=== PATIENT | female | born 1995 | race Two or more races ===

== ENCOUNTER 2018-05-02 00:35 | Emergency (ER) | payer MEDICAID ==
[2018-05-02] MEDS ORDERED: ONDANSETRON 4 MG/2 ML VIAL IVP ONE (00:45)
[2018-05-02] MEDS ORDERED: NS 1,000 ML IV ONE (00:45)
--- NOTE | 2018-05-02 00:56 | EDPHY ---
H & P Stated Complaint: recent dx with PE, since decreased urine op, vag bleeding/gen abd pain 2 da Time Seen by Provider: 05/02/18 00:55 HPI/ROS: HPI CHIEF COMPLAINT: Lower pelvic pain. Nausea. HISTORY OF PRESENT ILLNESS: 23-year-old female, history of PE, on Xarelto, got up pulmonary embolism from control and smoking tobacco. She is currently homeless. She presents emergency room with lower pelvic pain. States she is concerned she may have an infection. She developed pelvic pain over the last 48 hr. She just completed her menstrual cycle. She denies any significant abnormal vaginal discharge. Denies foul odor. Denies fever. Does complain of some lower pelvic pain. Past Medical History: Pulmonary embolism on Xarelto. Past Surgical History: No recent surgical history Social History: Homeless, smokes tobacco. Continues control. Family History: Noncontributory ROS REVIEW OF SYSTEMS: 10 Systems were reviewed and negative with the exception of the elements mentioned in the history of present illness. Exam Constitutional nontoxic. No acute distress, vital signs stable triage nursing summary reviewed, vital signs reviewed, awake/alert. Eyes normal conjunctivae and sclera, EOMI, PERRLA. HENT normal inspection, atraumatic, moist mucus membranes, no epistaxis, neck supple/ no meningismus, no raccoon eyes. Respiratory clear to auscultation bilaterally, normal breath sounds, no respiratory distress, no wheezing. Cardiovascular rate normal, regular rhythm, no murmur, no edema, distal pulses normal. Gastrointestinal mild tender palpation right and left adnexal and suprapubic tenderness, no peritoneal signs, soft, non-tender, no rebound, no guarding, normal bowel sounds, no distension, no pulsatile mass. Genitourinary no CVA tenderness. Musculoskeletal no midline vertebral tenderness, full range of motion, no calf swelling, no tenderness of extremities, no meningismus, good pulses, neurovascularly intact. Skin pink, warm, & dry, no rash, skin atraumatic. Neurologic awake, alert and oriented x 3, AAOx3, moves all 4 extremities equally, motor intact, sensory intact, CN II-XII intact, normal cerebellar, normal vision, normal speech. Psychiatric normal mood/affect. Heme/Lymph/Immune no lymphadenopathy. Differential diagnosis includes but is not limited to and in no particular order : Bowel obstruction, appendicitis, gallbladder disease, diverticulitis, colitis , enteritis, perforated viscus, gastritis, GERD, esophagitis, urinary tract infection, pyelonephritis, kidney stones Medical Decision Making: Plan for this patient IV establishment blood draw, gentle IV fluids, check UA, check test, pelvic exam and pelvic ultrasound. Re-evaluate. Re-evaluation: Pelvic ultrasound reviewed. Called to me by Dr. Caban. Unremarkable pelvic ultrasound. [id number]: Discussed patient's blood work and ultrasound results with her. Given that she is concerned about a possible pelvic infection I highly recommend she gets a pelvic exam with specimen sent however she is refusing the pelvic exam. She understands by he is in the pelvic exam not having specimen sent that I am unable to tell if she has a pelvic infection or PID. I did instead offer her emperic treatment just in case however she has declined this. She states that she will see how she does. She understands the risk of doing so. She understands the risk of by not having a pelvic exam pelvic specimens sent I am unable to tell if she has pelvic infection. Declined pelvic exam here in emergency room, declined antibiotics. I did discussed return precautions with her she understands return emergency room develops worsening abdominal pain, fever, pelvic pain, questions or concerns. Source: Patient - Medical/Surgical History Hx Asthma: No Hx Chronic Respiratory Disease: No Hx Diabetes: No Hx Cardiac Disease: No Hx Renal Disease: No Hx Cirrhosis: No Hx Alcoholism: No Hx HIV/AIDS: No Hx Splenectomy or Spleen Trauma: No Other PMH: PE, borderline personality do, ptsd, depression, bipolar - Social History Smoking Status: Current every day smoker Constitutional: Initial Vital Signs Temperature (C) 36.5 C 05/02/18 00:38 Heart Rate 88 05/02/18 00:38 Respiratory Rate 16 05/02/18 00:38 Blood Pressure 140/84 H 05/02/18 00:38 O2 Sat (%) 99 05/02/18 00:38 O2 Delivery Mode Room Air Allergies/Adverse Reactions: No Known Allergies Allergy (Unverified 05/02/18 00:43) Home Medications: Medication Instructions Recorded Control 05/02/18 Xarelto 05/02/18 Medical Decision Making - Data Points Laboratory Results: Laboratory Results 05/02/18 01:13 05/02/18 01:13 05/02/18 05/02/18 05/02/18 01:30 01:30 01:13 WBC RBC Hgb Hct MCV MCH MCHC RDW Plt Count MPV Neut % (Auto) Lymph % (Auto) [place] % (Auto) Eos % (Auto) Baso % (Auto) Nucleat RBC Rel Count Absolute Neuts (auto) Absolute Lymphs (auto) Absolute Monos (auto) Absolute Eos (auto) Absolute Basos (auto) Absolute Nucleated RBC Immature Gran % Immature Gran # Sodium Potassium Chloride Carbon Dioxide Anion Gap BUN Creatinine Estimated GFR Glucose Calcium Total Bilirubin Conjugated Bilirubin Unconjugated Bilirubin AST ALT Alkaline Phosphatase Total Protein Albumin Lipase Beta HCG, Qual NEGATIVE Urine Color YELLOW Urine Appearance CLEAR Urine pH 5.0 (5.0-7.5) Ur Specific [place] 1.021 (1.002-1.030) Urine Protein NEGATIVE (NEGATIVE) Urine Ketones NEGATIVE (NEGATIVE) Urine Blood NEGATIVE (NEGATIVE) Urine Nitrate NEGATIVE (NEGATIVE) Urine Bilirubin NEGATIVE (NEGATIVE) Urine Urobilinogen 2.0 EU H EU (0.2-1.0) Ur Leukocyte Esterase NEGATIVE (NEGATIVE) Urine Glucose NEGATIVE (NEGATIVE) Urine Opiates Screen NEGATIVE (NEGATIVE) Urine Barbiturates NEGATIVE (NEGATIVE) Ur Phencyclidine Scrn NEGATIVE (NEGATIVE) Ur Amphetamine Screen NEGATIVE (NEGATIVE) U Benzodiazepines Scrn NEGATIVE (NEGATIVE) Urine Cocaine Screen NEGATIVE (NEGATIVE) U Marijuana (THC) Screen NEGATIVE (NEGATIVE) 05/02/18 05/02/18 01:13 01:13 WBC 10.74 10^3/uL H 10^3/uL (3.80-9.50) RBC 4.03 10^6/uL L 10^6/uL (4.18-5.33) Hgb 12.3 g/dL L g/dL (12.6-16.3) Hct 36.9 % L % (38.0-47.0) MCV 91.6 fL fL (81.5-99.8) MCH 30.5 pg pg (27.9-34.1) MCHC 33.3 g/dL g/dL (32.4-36.7) RDW 12.2 % % (11.5-15.2) Plt Count 286 10^3/uL 10^3/uL (150-400) MPV 8.6 fL L fL (8.7-11.7) Neut % (Auto) 67.8 % % (39.3-74.2) Lymph % (Auto) 23.0 % % (15.0-45.0) [place] % (Auto) 6.1 % % (4.5-13.0) Eos % (Auto) 2.5 % % (0.6-7.6) Baso % (Auto) 0.2 % L % (0.3-1.7) Nucleat RBC Rel Count 0.0 % % (0.0-0.2) Absolute Neuts (auto) 7.28 10^3/uL H 10^3/uL (1.70-6.50) Absolute Lymphs (auto) 2.47 10^3/uL 10^3/uL (1.00-3.00) Absolute Monos (auto) 0.66 10^3/uL 10^3/uL (0.30-0.80) Absolute Eos (auto) 0.27 10^3/uL 10^3/uL (0.03-0.40) Absolute Basos (auto) 0.02 10^3/uL 10^3/uL (0.02-0.10) Absolute Nucleated RBC 0.00 10^3/uL 10^3/uL (0-0.01) Immature Gran % 0.4 % % (0.0-1.1) Immature Gran # 0.04 10^3/uL 10^3/uL (0.00-0.10) Sodium 135 mEq/L mEq/L (135-145) Potassium 4.1 mEq/L mEq/L (3.3-5.0) Chloride 100 mEq/L mEq/L (97-110) Carbon Dioxide 26 mEq/l mEq/l (22-31) Anion Gap 9 mEq/L mEq/L (6-14) BUN 14 mg/dL mg/dL (7-23) Creatinine 0.7 mg/dL mg/dL (0.6-1.0) Estimated GFR > 60 Glucose 92 mg/dL mg/dL (70-100) Calcium 9.5 mg/dL mg/dL (8.5-10.4) Total Bilirubin 0.3 mg/dL mg/dL (0.1-1.4) Conjugated Bilirubin 0.1 mg/dL mg/dL (0.0-0.5) Unconjugated Bilirubin 0.2 mg/dL mg/dL (0.0-1.1) AST 16 IU/L IU/L (14-46) ALT 25 IU/L IU/L (9-52) Alkaline Phosphatase 53 IU/L IU/L (38-126) Total Protein 7.2 g/dL g/dL (6.3-8.2) Albumin 4.0 g/dL g/dL (3.5-5.0) Lipase 68 IU/L IU/L (23-300) Beta HCG, Qual Urine Color Urine Appearance Urine pH Ur Specific [place] Urine Protein Urine Ketones Urine Blood Urine Nitrate Urine Bilirubin Urine Urobilinogen Ur Leukocyte Esterase Urine Glucose Urine Opiates Screen Urine Barbiturates Ur Phencyclidine Scrn Ur Amphetamine Screen U Benzodiazepines Scrn Urine Cocaine Screen U Marijuana (THC) Screen Medications Given: Discontinued Medications Sodium Chloride (Ns) 1,000 mls @ 0 mls/hr IV EDNOW ONE; Wide Open PRN Reason: Protocol Stop: 05/02/18 00:46 Last Admin: 05/02/18 01:14 Dose: 1,000 mls Ondansetron HCl (Zofran) 4 mg IVP EDNOW ONE Stop: 05/02/18 00:46 Last Admin: 05/02/18 01:13 Dose: 4 mg Departure - Departure Disposition: Home, Routine, Self-Care Clinical Impression: Pelvic pain in female Condition: Good Instructions: Pelvic Pain in Women (ED) Additional Instructions: 1. Return emergency room if develops worsening abdominal pain or pelvic pain. Referrals: NONE *PRIMARY CARE P,. [Primary Care Provider] - As per Instructions Samra Bee MD [Medical Doctor] - As per Instructions
[2018-05-02 01:22] LABS: PLATELET COUNT 286 10^3/uL (150-400)
[2018-05-02 03:00] VITALS: BP 132/73
== END 2018-05-02 02:58 | disposition home or self-care (01) ==
DX: R10.2 Pelvic and perineal pain (principal); Z86.711 Personal history of pulmonary embolism; Z79.01 Long term (current) use of anticoagulants; Z59.0 Homelessness; E86.9 Volume depletion, unspecified
CPT/HCPCS: 80305; 96374; J2405

== ENCOUNTER 2018-05-10 23:50 | Emergency (ER) | payer MEDICAID ==
[2018-05-11] MEDS ORDERED: IPRATROPIUM/ALBUTEROL 3 ML DEYVIAL IH ONE (00:30)
--- NOTE | 2018-05-11 00:39 | EDPHY ---
H & P Stated Complaint: COUGH, SOB, METH USE TODAY, PE 3 WKS AGO, OFF XERALTO Time Seen by Provider: 05/10/18 23:51 HPI/ROS: HPI The patient presents with cough which has been present for the last 4 days which is productive of clear yellow sputum. Today it became associated with bilateral eye drainage and redness as well as nasal congestion. The cough has been intermittent though getting progressively worse. Tonight it became associated with shortness of breath and that is why she called 911. She has had chills though no fevers at home. She reports aching pains of her lower back and flanks. She has not had any chest pain. Currently, she is not feeling short of breath, she only feels this way when she has a coughing fit. She is currently residing at the [facility]. She is sure she has been exposed to other sick people. She does smoke cigarettes in use methamphetamine. She was admitted to a hospital in [place] approximately 3 weeks ago where she was diagnosed with bilateral pulmonary embolism. She was given a course of Xarelto after a 3 day admission. Source of the PE was thought to be due to OCP use and smoking history. She did not have a DVT. She was able to take 21 days of Xarelto twice daily, however failed to continue after this and has not been taking it since. She says her symptoms today do not feel anything like her PE which caused her dyspnea on exertion and pleuritic chest pain. REVIEW OF SYSTEMS 10 systems were reviewed and negative with the exception of the elements mentioned in the history of present illness. PMHx: Reported diagnosis of pulmonary embolism 3 weeks ago, currently not taking Xarelto Soc Hx: From [place], currently staying at the [facility], smokes cigarettes, uses methamphetamine PHYSICAL General Appearance: Alert, coughing up clear yellow phlegm Eyes: Pupils equal and round, conjunctiva not injected though bilateral drainage which is yellowish ENT, Mouth: Mucous membranes moist, posterior pharynx unremarkable Respiratory: There are no retractions, lungs are clear to auscultation Cardiovascular: Regular rate and rhythm Gastrointestinal: Abdomen is soft and non-tender, no masses, bowel sounds normal Neurological: A&O, moves all extremities Skin: Warm and dry, no rashes Musculoskeletal: Neck is supple non tender Extremities: symmetrical, full range of motion Psychiatric: Patient is oriented X 3, there is no agitation Source: Patient, EMS Exam Limitations: No limitations - Personal History Current Tetanus/Diphtheria Vaccine: Yes - Medical/Surgical History Hx Asthma: No Hx Chronic Respiratory Disease: No Hx Diabetes: No Hx Cardiac Disease: No Hx Renal Disease: No Hx Cirrhosis: No Hx Alcoholism: No Hx HIV/AIDS: No Hx Splenectomy or Spleen Trauma: No Other PMH: PE, borderline personality do, ptsd, depression, bipolar, METH USE - Social History Smoking Status: Current every day smoker Constitutional: Initial Vital Signs Temperature (C) 36.8 C 05/10/18 23:50 Heart Rate 100 05/10/18 23:50 Respiratory Rate 22 H 05/10/18 23:50 Blood Pressure 127/92 H 05/10/18 23:50 O2 Sat (%) 99 05/10/18 23:50 O2 Delivery Mode Room Air Allergies/Adverse Reactions: No Known Allergies Allergy (Unverified 05/02/18 00:43) Home Medications: Medication Instructions Recorded Control 05/02/18 Xarelto 05/02/18 Doxycycline Hyclate 100 mg PO BID #14 tab 05/11/18 Rivaroxaban [Xarelto] 20 mg PO DAILY #14 tab 05/11/18 Medical Decision Making - Diagnostics Imaging Results: Chest x-ray two view shows faint retrocardiac infiltrate, interpreted by me, radiology interpretation is pending. Imaging: I viewed and interpreted images myself Differential Diagnosis: 23-year-old homeless female with recent diagnosis of pulmonary embolism about 3 weeks ago at outside hospital, not entirely compliant with Xarelto, history of cigarette smoking and methamphetamine use, now presents with 4 days of productive cough, conjunctivitis, congestion, chills, myalgias. Differential diagnosis includes influenza, pneumonia, bronchitis. I have considered worsening pulmonary embolism, however she is not hypoxic, tachypneic , and does not have shortness of breath unless she is coughing. She says her symptoms today feel nothing like when she was diagnosed with a PE. Plan to obtain chest x-ray, basic labs, influenza swab. We will trial a DuoNeb. Patient's chest x-ray shows possible retrocardiac infiltrate. I will give her doxycycline for this. Labs were unremarkable, flu swab was negative. She improved after DuoNeb and had very minimal ongoing coughing. We were able to give her a single dose of Xarelto to go home with. She is staying at the [facility] and [facility]. I have explained that she will need to follow up with them to get tied into care. I have given her a prescription for Xarelto as well. I have also given her a course of doxycycline. I will send her home with an albuterol inhaler. I suspect she has bronchitis verses early pneumonia. - Data Points Laboratory Results: Laboratory Results 05/11/18 00:00 05/11/18 00:00 05/11/18 05/11/18 05/11/18 00:45 00:00 00:00 WBC 10.80 10^3/uL H 10^3/uL (3.80-9.50) RBC 3.94 10^6/uL L 10^6/uL (4.18-5.33) Hgb 12.1 g/dL L g/dL (12.6-16.3) Hct 35.7 % L % (38.0-47.0) MCV 90.6 fL fL (81.5-99.8) MCH 30.7 pg pg (27.9-34.1) MCHC 33.9 g/dL g/dL (32.4-36.7) RDW 12.4 % % (11.5-15.2) Plt Count 354 10^3/uL 10^3/uL (150-400) MPV 8.8 fL fL (8.7-11.7) Neut % (Auto) 77.8 % H % (39.3-74.2) Lymph % (Auto) 13.6 % L % (15.0-45.0) [place] % (Auto) 7.2 % % (4.5-13.0) Eos % (Auto) 0.8 % % (0.6-7.6) Baso % (Auto) 0.2 % L % (0.3-1.7) Nucleat RBC Rel Count 0.0 % % (0.0-0.2) Absolute Neuts (auto) 8.40 10^3/uL H 10^3/uL (1.70-6.50) Absolute Lymphs (auto) 1.47 10^3/uL 10^3/uL (1.00-3.00) Absolute Monos (auto) 0.78 10^3/uL 10^3/uL (0.30-0.80) Absolute Eos (auto) 0.09 10^3/uL 10^3/uL (0.03-0.40) Absolute Basos (auto) 0.02 10^3/uL 10^3/uL (0.02-0.10) Absolute Nucleated RBC 0.00 10^3/uL 10^3/uL (0-0.01) Immature Gran % 0.4 % % (0.0-1.1) Immature Gran # 0.04 10^3/uL 10^3/uL (0.00-0.10) Sodium 136 mEq/L mEq/L (135-145) Potassium 4.0 mEq/L mEq/L (3.3-5.0) Chloride 101 mEq/L mEq/L (97-110) Carbon Dioxide 25 mEq/l mEq/l (22-31) Anion Gap 10 mEq/L mEq/L (6-14) BUN 13 mg/dL mg/dL (7-23) Creatinine 0.7 mg/dL mg/dL (0.6-1.0) Estimated GFR > 60 Glucose 126 mg/dL H mg/dL (70-100) Calcium 9.4 mg/dL mg/dL (8.5-10.4) Nasal Influenza A PCR NEGATIVE FOR FLU A (NEGATIVE) Nasal Influenza B PCR NEGATIVE FOR FLU B (NEGATIVE) RSV (PCR) NEGATIVE FOR RSV (NEGATIVE) Medications Given: Discontinued Medications Albuterol Sulfate (Proventil Inh Prepack) 1 mdi TAKEHOME EDNOW ONE Stop: 05/11/18 01:53 Last Admin: 05/11/18 02:00 Dose: 1 mdi Albuterol/Ipratropium (Duoneb) 3 ml IH EDNOW ONE Stop: 05/11/18 00:31 Last Admin: 05/11/18 01:02 Dose: 3 ml Doxycycline Hyclate (Vibramycin 100 Mg Prepack#2) 1 btl TAKEHOME EDNOW ONE Stop: 05/11/18 01:53 Last Admin: 05/11/18 01:59 Dose: 1 btl Doxycycline Hyclate (Doxycycline Hyclate) 100 mg PO EDNOW ONE PRN Reason: Protocol Stop: 05/11/18 01:53 Last Admin: 05/11/18 01:59 Dose: 100 mg Rivaroxaban (Xarelto) 20 mg PO DAILY EDMAR Stop: 11/07/18 08:59 Last Admin: 05/11/18 02:00 Dose: 20 mg Departure - Departure Disposition: Home, Routine, Self-Care Clinical Impression: Pneumonia Qualifiers: Pneumonia type: due to unspecified organism Laterality: right Lung location: middle lobe of lung Qualified Code(s): J18.1 - Lobar pneumonia, unspecified organism Pulmonary emboli Qualifiers: Pulmonary embolism type: other Chronicity: chronic Acute cor pulmonale presence : without acute cor pulmonale Qualified Code(s): I27.82 - Chronic pulmonary embolism Condition: Good Instructions: Doxycycline (By mouth), Rivaroxaban (By mouth), Pneumonia (ED) Additional Instructions: Please take the medication as prescribed. It is important that you follow up with [facility] in the morning so that you can get a prescription for Xarelto. You should return to the emergency department if your worse in any way. The [facility] has walk-in appointments for the homeless at the following days/locations. No appointment is needed. Monday 8-10 am @ [facility] 11 AM-1 PM @ [facility] Monday 8-10:30 AM @ [facility] Monday 8-10 AM @ [facility] 2-4 PM @ [facility] Monday 8-10 AM @ [facility] Referrals: [facility],. [Clinic] - As per Instructions Prescriptions: Doxycycline Hyclate 100 mg PO BID #14 tab Rivaroxaban [Xarelto] 20 mg PO DAILY #14 tab
[2018-05-11 01:10] LABS: PLATELET COUNT 354 10^3/uL (150-400)
[2018-05-11] MEDS ORDERED: DOXYCYCLINE 100 MG PREPACK#2 BTL TAKEHOME ONE (01:52)
[2018-05-11] MEDS ORDERED: ALBUTEROL INH PREPACK MDI TAKEHOME ONE (01:52)
[2018-05-11] MEDS ORDERED: DOXYCYCLINE HYCLATE 100 MG CAP/TAB PO ONE (01:52)
[2018-05-11 02:03] VITALS: BP 150/94
[2018-05-11] MEDS ORDERED: RIVAROXABAN 10 MG TAB PO SCH (09:00)
[2018-05-11] MEDS ORDERED: RIVAROXABAN 20 MG TAB PO SCH ×2 (09:00)
== END 2018-05-11 02:30 | disposition home or self-care (01) ==
LOC: EDUNIT#
DX: J18.1 Lobar pneumonia, unspecified organism (principal); I27.82 Chronic pulmonary embolism; Z59.0 Homelessness